=== PATIENT | male | born 1965 | race Caucasian/White ===

== ENCOUNTER 2018-05-11 11:53 | Emergency (ER) | END 2018-05-11 14:48 | disposition home or self-care (01) ==

== ENCOUNTER 2018-10-17 11:17 | Day surgery (SDC) | payer BC, MEDICAID ==
[~2018-10-17] VITALS: Ht 167.6 cm; Wt 84.3 kg
[~2018-10-17 11:17] MED LIST: FURO20TA3 PO; SPIR50TA PO
[2018-10-17] MEDS ORDERED: lactulose (12:49)
[2018-10-17 12:53] VITALS: BP 120/62; PULSE 80; RESP 20; Ht 167.6 cm; Wt 84.3 kg
[2018-10-17] MEDS ORDERED: LIDOCAINE 2% (SDV) 5 ML INJ ONE (14:15)
[2018-10-17] MEDS ORDERED: PROPOFOL 60 ML ONE (14:15)
--- NOTE | 2018-10-17 14:27 | PREAC ---
Date/Time of Note Date/Time of Note DATE: 10/17/18 TIME: 14:25 Anesthesia Eval and Record Evaluation Time Pre-Procedure Interview DATE: 10/17/18 TIME: 14:25 Age 53 Sex male NPO: 8 hrs Preoperative diagnosis abdominal pain, colon screening Planned procedure EGD, Colonscopy Past Medical History Past Medical History: Includes Hepatic: Cirrhosis Surgery & Anesthesia Issues No known issue Meds Anticoagulation: No Beta Ziggy within 24 hr: No Reason Beta Ziggy not given: Pt. not on B-Ziggy Reported Medications [lactulose] No Conflict Check 10/17/18 Spironolactone* (Aldactone*) 50 Mg Tablet, 50 MG PO DAILY, #30 TAB 05/11/18 Furosemide* (Furosemide*) 20 Mg Tablet, 20 MG PO DAILY, #60 TAB 05/11/18 Meds reviewed: Yes Allergies Coded Allergies: No Known Allergy (Unverified , 05/11/18) Allergies Reviewed: Yes Labs/Studies Labs Reviewed: Reviewed by anesthesiologist test: N/A Studies: ECG Pre-procedure Exam Last vitals Vital Signs Date Temp Pulse Resp B/P (MAP) Pulse Ox O2 O2 Flow FiO2 Time Delivery Rate 10/17/18 98.1 80 20 120/62 98 Room Air 12:53 (81) Airway: Adequate mouth opening, Adequate thyromental dist Mallampati: Mallampati II Teeth: Normal Lung: Normal Heart: Normal ASA Physical Status ASA physical status: 3 Emergency: None Planned Anesthetic General/MAC: MAC Pre-operative Attestations Prior to commencing anesthesia and surgery, the patient was re-evaluated, there was verification of: *The patient's identity *The results of appropriate recent lab work and preoperative vital signs *The above evaluation not changing prior to induction *Anesthetic plan, risk benefits, alternative and complications discussed with patient/family; questions answered; patient/family understands, accepts and wishes to proceed. ANUPAMA NOLASCO MD Oct 17, 2018 14:27
--- NOTE | 2018-10-17 14:51 | PAC ---
Date/Time of Note Date/Time of Note DATE: 10/17/18 TIME: 14:51 Post-Anesthesia Notes Post-Anesthesia Note Last documented vital signs Vital Signs Date Temp Pulse Resp B/P (MAP) Pulse Ox O2 O2 Flow FiO2 Time Delivery Rate 10/17/18 98.1 80 20 120/62 98 Room Air 12:53 (81) Activity: WNL Respiratory function: WNL Cardiovascular function: WNL Mental status: Baseline Pain reasonably controlled: Yes Hydration appropriate: Yes Nausea/Vomiting absent: Yes Comments BP"125/56, pulse:68, spo2:100%, T:98,8 ANUPAMA NOLASCO MD Oct 17, 2018 14:51
[2018-10-17 15:13] VITALS: BP 110/68; PULSE 85; RESP 18
== END 2018-10-17 16:27 | disposition home or self-care (01) ==
LOC: GIL 11:17
PROVIDERS: ATTEND Internal Medicine Gastroenterology
DX: Z12.11 Encounter for screening for malignant neoplasm of colon (principal); K29.50 Unspecified chronic gastritis without bleeding; K64.8 Other hemorrhoids; I85.00 Esophageal varices without bleeding; K44.9 Diaphragmatic hernia without obstruction or gangrene; K21.0 Gastro-esophageal reflux disease with esophagitis
CPT/HCPCS: 43239; 45378; 88305; 88312; Z7610